=== PATIENT | female | born 1965 | race Caucasian/White ===

== ENCOUNTER 2024-04-15 08:59 | Day surgery (SDC) | payer BC ==
[~2024-04-15 08:59] MED LIST: Sodium Chloride 0.9% 10 ML Syringe FLUSH PRN; Sodium Chloride 0.9% 10 ML Syringe FLUSH SCH
[2024-04-15] MEDS: Lactated Ringers 1,000 ML IV SCH (09:20)
[2024-04-15] MEDS ORDERED: Ondansetron 4 MG/2 ML SDV IVPUSH PRN (09:40)
[2024-04-15] MEDS ORDERED: HYDROmorphone 0.5 MG/0.5 ML Syringe IVPUSH PRN (09:40)
[2024-04-15] MEDS ORDERED: fentaNYL 100 MCG/2 ML SDV IVPUSH PRN (09:40)
[2024-04-15] MEDS ORDERED: fentaNYL 100 MCG/2 ML SDV ONE (09:57)
[2024-04-15] MEDS ORDERED: Propofol 200 MG/20 ML SDV ONE ×3 (09:57→10:36)
[2024-04-15] MEDS ORDERED: Midazolam 1 MG/ML 2 ML SDV ONE (09:58)
== END 2024-04-15 11:45 ==
LOC: JD.SDS 08:59
PROVIDERS: ATTEND Surgery
DX: Z12.11 Encounter for screening for malignant neoplasm of colon (principal); K29.50 Unspecified chronic gastritis without bleeding; K57.30 Diverticulosis of large intestine without perforation or abscess without bleeding; K64.8 Other hemorrhoids; K21.9 Gastro-esophageal reflux disease without esophagitis; J45.909 Unspecified asthma, uncomplicated; I10 Essential (primary) hypertension; E78.5 Hyperlipidemia, unspecified; Z79.82 Long term (current) use of aspirin; Z79.899 Other long term (current) drug therapy; Z86.010 Personal history of colon polyps
CPT/HCPCS: 43239; 45380; J2250; J2704; J3010; J7120; 00813